=== PATIENT | male | born 1995 | race Caucasian/White ===

== ENCOUNTER 2021-05-05 01:26 | Emergency (ER) | payer OTHER ==
[2021-05-05 01:33] VITALS: BP 171/90
--- NOTE | 2021-05-05 01:38 | ED Physician Documentation ---
PD HPI HEENT - Stated complaint Stated Complaint: NOSE LAC - Chief complaint Chief Complaint: Heent - History obtained from History obtained from: Patient - History of Present Illness Timing - onset: How many minutes ago (45) Timing - details: Abrupt onset Location: Nose Recently seen: Not recently seen - Additional information Additional information: approximately 45 minutes [employer], patient was at a friend's house playing with friend's dog when the dog bit patient's nose. No other injury. Patient is confident the dog is UTD on immunizations. Patient says he (patient) is UTD on tetanus immunization Review of Systems Nose: denies: Epistaxis PD PAST MEDICAL HISTORY - Past Medical History Past Medical History: Yes Cardiovascular: Hypertension - Past Surgical History Past Surgical History: Yes General: Cholecystectomy - Present Medications Home Medications: Ambulatory Orders Medication Instructions Recorded Confirmed Amox/Clav 875/125 [Augmentin 1 tablet PO Q12H 14 Days #28 tablet 05/05/21 875/125 Tab] Lisinopril/Hydrochlorothiazide 1 each PO DAILY 05/05/21 05/05/21 [Zestoretic 20-12.5 mg Tablet] - Allergies Allergies/Adverse Reactions: Allergies Allergy/AdvReac Type Severity Reaction Status Date / Time No Known Drug Allergies Allergy Verified 05/05/21 01:33 - Social History Does the pt smoke?: Yes Smoking Status: Current every day smoker Does the pt drink ETOH?: Yes Does the pt have substance abuse?: No - Immunizations Immunizations are current?: Yes PD ED PE NORMAL - Vitals Vital signs reviewed: Yes - General General: Alert and oriented X 3, No acute distress, Well developed/nourished PD ED PE EXPANDED - HEENT HEENT Visual: 1 - deformity (tip of nose is avulsed; no visualized bone or cartilage) 2 - deformity (2x3 mm avulsed skin) 3 - laceration (1 cm length linear skin avulsion) Results - Vitals Vitals: Vital Signs - 24 hr 05/05/21 01:28 Temperature 36.4 C L Heart Rate 91 Respiratory 18 Rate Blood Pressure 171/90 H O2 Saturation 96 Oxygen O2 Source Room air PD MEDICAL DECISION MAKING - ED course Complexity details: considered differential, d/w patient ED course: sustained nasal injury due to dog bite. Unfortunately, all three of the lesions involve skin avulsions and thus no repair can be undertaken at this time. The tip of the nose and the right nasal ala both have completely avulsed skin (not [id number] and no bone/cartilage visible); there is a linear injury to the right side of the nose but this also involves avulsed skin: applying pressure to the wound edges does not result in approximation of the edges, indicative of avulsed skin rather than a laceration that can be repaired (such as with sutures). I discussed this with patient and explained that this will likely result in significant scarring and lack of rounded tip of nose; I advised him to follow up with primary care provider not only for a wound check but to discuss possible referral to a specialist such as plastic surgery. He is given augmentin for wound prophylaxis with rx for same Departure - Departure Disposition: 01 Home, Self Care Clinical Impression: Dog bite of nose Qualifiers: Encounter type: initial encounter Qualified Code(s): S01.25XA - Open bite of nose, initial encounter Condition: Good Instructions: ED Bite Dog Follow-Up: SURINDER Lopez [Provider Group] - Within 3 Days Prescriptions: Amox/Clav 875/125 [Augmentin 875/125 Tab] 1 tablet PO Q12H 14 Days #28 tablet Comments: As we discussed, the injuries sustained to your nose tonight involve avulsions (missing skin), and thus there is no means of repairing the injury at this time (such as with glue or sutures). An antibiotic prescription has been transmitted to the [facility] pharmacy to minimize infection risk. Wash the area twice per day with soap and water, dry gently and then apply an antibiotic ointment such as bacitracin. You should follow up with your primary care provider in 2-3 days for a recheck of the wound. While the wounds should very gradually heal, there will likely be significant scarring as well as loss of the roundness of the tip of the nose. Talk to your primary care provider about a referral to a specialist such as a plastic surgeon so that options for optimal outcome can be discussed. Discharge Date/Time: 05/05/21 02:25
[2021-05-05] MEDS ORDERED: AMOX/CLAV 875 MG/125 MG TABLET PO STA (01:49)
== END 2021-05-05 02:25 | disposition home or self-care (01) ==
LOC: ED 01:26
DX: S01.25XA Open bite of nose, initial encounter (principal); W54.0XXA Bitten by dog, initial encounter; I10 Essential (primary) hypertension; F17.200 Nicotine dependence, unspecified, uncomplicated
CPT/HCPCS: 99282; A9270